=== PATIENT | male | born 1985 | race Caucasian/White ===

== ENCOUNTER → 2016-08-16 | Outpatient (CLI) | payer OTHER ==
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
== END | disposition home or self-care (01) ==
LOC: KCIC MRI 09:07
PROVIDERS: ATTEND Physician Assistant Medical
DX: M54.5 Low back pain (principal)
CPT/HCPCS: 72148

== ENCOUNTER → 2019-04-11 | Outpatient (CLI) | payer OTHER ==
--- NOTE | 2019-04-11 16:56 | KCIC ---
EXAM: LEFT FOOT 3 VIEWS. HISTORY: Left foot pain. COMPARISON: None. FINDINGS: Three views of the left foot are obtained. No fractures are identified. Alignment is normal. Joint spaces are maintained. IMPRESSION: 1. No fracture. Electronically signed by: Haley Woods MD (04/11/2019 4:53 PM) [facility]
== END | disposition home or self-care (01) ==
LOC: KCIC 14:46
PROVIDERS: ATTEND Family Medicine
DX: M79.672 Pain in left foot (principal)
CPT/HCPCS: 73630

== ENCOUNTER 2020-07-11 05:39 | Emergency (ER) | payer OTHER ==
[~2020-07-11] VITALS: Ht 175.3 cm; Wt 92.7 kg
[2020-07-11] MEDS ORDERED: diphenhydrAMINE 50 MG/ML VIAL IVP ONE (06:30)
[2020-07-11] MEDS ORDERED: ONDANSETRON PF 4 MG/2 ML VIAL. IVP ONE (06:30)
[2020-07-11] MEDS ORDERED: IV NORMAL SALINE 1000ML BAG 1,000 ML IV ONE (06:30)
[2020-07-11] MEDS ORDERED: methylPREDNISolone SOD SUCC PF 125 MG/2 ML VIAL. IV ONE (06:30)
--- NOTE | 2020-07-11 06:38 | PHYS DOC ---
Past Medical History Past Medical History: No Pertinent History Past Surgical History: Tonsillectomy, Other Additional Past Surgical Histo: DEVIATED SEPTUM AND SINUS REPAIR Smoking Status: Never Smoker Alcohol Use: Occasionally General Adult EDM: Chief Complaint: DEHYDRATION HPI: HPI: Patient is a 35 year old male who presented to ER due to dehydration. Patient said he had tonsillectomy and adenoidectomy done 3 days ago. Patient said he has not been able to eat or drink due to pain. He said he lost a lot of weight, felt dehydrated. Patient denies any fever, no headache, no chest pain, no abdominal pain, no nausea vomiting, no trouble breathing. Review of Systems: Review of Systems: Constitutional: Denies fever or chills. Positive for generalized weakness. Eyes: Denies change in visual acuity. [] HENT: Positive for sore throat, Respiratory: Denies cough or shortness of breath. [] Cardiovascular: Denies chest pain or edema. [] GI: Denies abdominal pain, nausea, vomiting, bloody stools or diarrhea. [] : Denies dysuria. [] Musculoskeletal: Denies back pain or joint pain. [] Integument: Denies rash. [] Neurologic: Denies headache, focal weakness or sensory changes. [] Endocrine: Denies polyuria or polydipsia. [] Lymphatic: Denies swollen glands. [] Psychiatric: Denies depression or anxiety. [] Heart Score: Risk Factors: Risk Factors: DM, Current or recent (<one month) smoker, HTN, HLP, family history of CAD, obesity. Risk Scores: Score 0 - 3: 2.5% MACE over next 6 weeks - Discharge Home Score 4 - 6: 20.3% MACE over next 6 weeks - Admit for Clinical Observation Score 7 - 10: 72.7% MACE over next 6 weeks - Early Invasive Strategies Current Medications: Current Medications Medications (Trade) Dose Ordered Sig/Georgina Start Time Stop Time Status Last Admin Dose Admin Diphenhydramine HCl (Benadryl) 25 mg 1X ONCE 07/11/20 06:30 2 06:31 DC Methylprednisolone Sodium Succinate (SOLU-Medrol 125MG VIAL) 125 mg 1X ONCE 07/11/20 06:30 07/11/20 06:31 DC Ondansetron HCl (Zofran) 4 mg 1X ONCE 07/11/20 06:30 26/21 06:31 DC 07/11/20 06:26 4 MG Sodium Chloride 1,000 ml @ 1,000 mls/hr 1X ONCE 07/11/20 06:30 07/11/20 07:29 07/11/20 06:25 1,000 MLS/HR Allergies: Allergies: Allergies Coded Allergies Type Severity Reaction Last Updated Verified soap Allergy Unknown 07/11/20 Yes Uncoded Allergies Type Severity Reaction Last Updated Verified TAPE Allergy Unknown 07/11/20 Physical Exam: PE: Constitutional: Well developed, well nourished, no acute distress, non-toxic appearance. [] HENT: Normocephalic, atraumatic, bilateral external ears normal, uvula is edematous and erythema, whitish slough in tonsillar fossae bilaterally, no active bleeding, no nose bleeding. Eyes: PERRLA, EOMI, conjunctiva normal, no discharge. [] Neck: Normal range of motion, no tenderness, supple, no stridor. [] Cardiovascular:Heart rate regular rhythm, no murmur [] Lungs & Thorax: Bilateral breath sounds clear to auscultation [] Abdomen: Bowel sounds normal, soft, no tenderness, no masses, no pulsatile masses. [] Skin: Warm, dry, no erythema, no rash. [] Back: No tenderness, no CVA tenderness. [] Extremities: No tenderness, no cyanosis, no clubbing, ROM intact, no edema. [] Neurologic: Alert and oriented X 3, normal motor function, normal sensory function, no focal deficits noted. [] Psychologic: Affect normal, judgement normal, mood normal. [] Current Patient Data: Labs: Laboratory Tests Test 07/11/20 05:55 White Blood Count 12.5 x10^3/uL Red Blood Count 5.02 x10^6/uL Hemoglobin 15.7 g/dL Hematocrit 45.7 % Mean Corpuscular Volume 91 fL Mean Corpuscular Hemoglobin 31 pg Mean Corpuscular Hemoglobin Concent 34 g/dL Red Cell Distribution Width 12.8 % Platelet Count 241 x10^3/uL Neutrophils (%) (Auto) 75 % Lymphocytes (%) (Auto) 14 % Monocytes (%) (Auto) 11 % Eosinophils (%) (Auto) 0 % Basophils (%) (Auto) 0 % Neutrophils # (Auto) 9.4 x10^3/uL Lymphocytes # (Auto) 1.7 x10^3/uL Monocytes # (Auto) 1.3 x10^3/uL Eosinophils # (Auto) 0.0 x10^3/uL Basophils # (Auto) 0.0 x10^3/uL Sodium Level 140 mmol/L Potassium Level 3.8 mmol/L Chloride Level 103 mmol/L Carbon Dioxide Level 25 mmol/L Anion Gap 12 Blood Urea Nitrogen 16 mg/dL Creatinine 1.2 mg/dL Estimated GFR (Cockcroft-Gault) 68.5 BUN/Creatinine Ratio 13 Glucose Level 114 mg/dL Calcium Level 9.3 mg/dL Magnesium Level 2.2 mg/dL Total Bilirubin 1.0 mg/dL Aspartate Amino Transf (AST/SGOT) 25 U/L Alanine Aminotransferase (ALT/SGPT) 45 U/L Alkaline Phosphatase 59 U/L Total Protein 7.8 g/dL Albumin 3.7 g/dL Albumin/Globulin Ratio 0.9 Lipase 86 U/L Current Medications Medications (Trade) Dose Ordered Sig/Georgina Route PRN Reason Start Time Stop Time Status Last Admin Dose Admin Sodium Chloride 1,000 ml @ 1,000 mls/hr 1X ONCE IV 07/11/20 06:30 07/11/20 07:29 DC 07/11/20 06:25 Ondansetron HCl (Zofran) 4 mg 1X ONCE IVP 07/11/20 06:30 07/11/20 06:31 DC 07/11/20 06:26 Methylprednisolone Sodium Succinate (SOLU-Medrol 125MG VIAL) 125 mg 1X ONCE IV 07/11/20 06:30 07/11/20 06:31 DC 07/11/20 06:41 Diphenhydramine HCl (Benadryl) 25 mg 1X ONCE IVP 07/11/20 06:30 07/11/20 06:31 DC 07/11/20 06:40 Vital Signs: Vital Signs Date Time Temp Pulse Resp B/P (MAP) Pulse Ox O2 Delivery O2 Flow Rate FiO2 07/11/20 05:40 97.9 108 12 158/91 (113) 96 Room Air 97.9 EKG: EKG: [] Radiology/Procedures: Radiology/Procedures: [] Course & Med Decision Making: Course & Med Decision Making Pertinent Labs and Imaging studies reviewed. (See chart for details) Patient is a 35-year-old male who was evaluated in the ER due to generalized weakness after tonsillectomy. Patient vital signs was normal, his lab work was within normal limits. Patient was given IV fluid, IV nausea medication in the ER. Due to the swelling in her uvula patient was given steroid and Benadryl.. Patient will be discharged home, he will need to follow-up with his ENT doctor on Monday. Charis Disclaimer: Charis Disclaimer: This electronic medical record was generated, in whole or in part, using a voice recognition dictation system. Departure Departure Impression: Primary Impression: Dehydration Additional Impression: Status post tonsillectomy and adenoidectomy Disposition: HOME SELF CARE/HOMELESS Condition: IMPROVED Referrals: CHRIS FROST MD (PCP) Follow up with your ENT doctor on Monday. Patient Instructions: Dehydration, Adult, Diet - Following Tonsillectomy, Adult, Tonsillectomy, Adult, Care After Additional Instructions: Thank you for visiting our Emergency Department. We appreciate you trusting us with your care. If any additional problems come up don't hesitate to return to visit us. Please follow up with your primary care provider so they can plan additional care if needed and know about the problem that you had. If symptoms worsen come back to the Emergency Department. Any concerning symptoms that start such as chest pain, shortness of air, weakness or numbness on one side of the body, running high fevers or any other concerning symptoms return to the ER. KYLE CARPENTER DO Jul 11, 2020 06:38
[2020-07-11 06:46] LABS: BASO % 0 % (0-3); EOS % 0 % (0-3); HEMATOCRIT 45.7 % (39.0-53.0); HEMOGLOBIN 15.7 g/dL (13.0-17.5); LYMPH # 1.7 x10^3/uL (1.0-4.8); LYMPH % 14 % (24-48); MEAN CORPUSCULAR HEMOGLOBIN 31 pg (25-35); MEAN CORPUSCULAR HGB CONC 34 g/dL (31-37); MEAN CORPUSCULAR VOLUME 91 fL (79-100); MONO # 1.3 x10^3/uL (0.0-1.1); MONO % 11 % (0-9); NEUT # 9.4 x10^3/uL (1.8-7.7); NEUT % 75 % (31-73); PLATELET COUNT 241 x10^3/uL (140-400); RED BLOOD COUNT 5.02 x10^6/uL (4.30-5.70); RED CELL DISTRIBUTION WIDTH 12.8 % (11.5-14.5); WHITE BLOOD COUNT 12.5 x10^3/uL (4.0-11.0)
[2020-07-11 06:52] LABS: CALCIUM 9.3 mg/dL (8.5-10.1); CREATININE 1.2 mg/dL (0.7-1.3); GFR 68.5; POTASSIUM 3.8 mmol/L (3.5-5.1)
[2020-07-11 06:58] LABS: ALBUMIN 3.7 g/dL (3.4-5.0); ALBUMIN/GLOBULIN RATIO 0.9 (1.0-1.7); MAGNESIUM 2.2 mg/dL (1.8-2.4); TOTAL PROTEIN 7.8 g/dL (6.4-8.2)
[2020-07-11 07:45] VITALS: BP 123/74
== END 2020-07-11 08:08 | disposition home or self-care (01) ==
LOC: ER 05:39
DX: E86.0 Dehydration (principal); R53.1 Weakness; Z90.89 Acquired absence of other organs; Z88.8 Allergy status to other drugs, medicaments and biological substances
CPT/HCPCS: 36415; 80053; 83690; 83735; 85025; 96361; 96374; 96375; 99284; J1200; J2405; J2930; J7030

== ENCOUNTER → 2020-12-11 | Outpatient (CLI) | payer OTHER ==
[~2020-12-11] MED LIST: ALBU2.5V8 IH; ALLO300T PO; DEXT25CA4 PO; GADOTERATE 7.5 MMOL/15ML VIAL. INT ART ONE; IOHEXOL 300 MG/ML 50 ML VIAL. INT ART ONE; LIDOCAINE 1% Multi-Dose 20 ML VIAL. ID ONE; OXYC1TAB19 PO
--- NOTE | 2020-12-11 17:26 | KCIC ---
Fluoroscopically guided injection of the left shoulder to facilitate a MR arthrogram 12/11/2020 Clinical history: Left shoulder pain. Technique: After the risks and benefits of the procedure were explained to the patient, written infor med consent was obtained. The anterior skin surface of the left shoulder was prepped and draped in st erile fashion. 1% lidocaine was used as local anesthetic. Under fluoroscopic guidance, a 22-gauge spi nal needle was advanced into the anterior aspect of the left glenohumeral joint. Intra-articular posi tion of the needle was confirmed by injecting 3 cc of Omnipaque 300. Following 15 cc of a solution co ntaining 5 cc of 0.1% lidocaine, 15 cc of normal saline and 0.1 cc of CLARISCAN were injected into th e left glenohumeral joint. Following this the needle was removed and hemostasis achieved at the punct ure site. A sterile bandage was placed on the skin puncture site. The patient tolerated the procedure well and there were no immediate complications. The patient was taken to MRI for further imaging maynor luation. The total fluoroscopic time for this study was 29 seconds. 1 digital fluoroscopic captured A P radiograph of the left shoulder was obtained. Impression: Technically successful injection of the left shoulder joint under fluoroscopy to facilita te a MR arthrogram as outlined above. Electronically signed by: Adonis Hein MD (12/11/2020 5:23 PM) [id number]
--- NOTE | 2020-12-12 07:37 | KCIC ---
Exam Date: 12/11/2020 2:20 PM MRI LEFT UPPER EXTREMITY JOINT WITH IV CONTRAST Indication: Reason: LEFT SHOULDER PAIN / Spl. Instructions: / History: Left shoulder pain, decreased ROM since September 2020. MR ARTHROGRAM LEFT SHOULDER WITH CONTRAST TECHNIQUE: Multiplanar MR imaging of the shoulder was performed following the intra-articular injecti on of both iodinated contrast and dilute gadolinium contrast. The fluorscopic-guided shoulder injec tion procedure is reported separately. FINDINGS: There is a posterior labral tear extending inferiorly. There is a 4 mm paralabral cyst adjacent to t he posterior inferior labrum. Long head of the biceps tendon is intact. No full-thickness rotator cuff tendon tear is identified. The supraspinatus, infraspinatus, teres mi nor and subscapularis tendons are intact. Rotator cuff musculature demonstrates normal signal and bu lk. Mild degenerative changes are seen at the AC joint. There is an intact type I acromion. No signific ant fluid or contrast extension is seen in the subacromial/subdeltoid bursa to suggest bursitis or fu ll-thickness rotator cuff tendon tear. No large full-thickness chondral defect is seen at the glenohumeral joint. Bone marrow demonstrates benign signal on all sequences without acute fracture. IMPRESSION: There is a posterior labral tear extending inferiorly with an adjacent small paralabral cyst. Intact rotator cuff tendons. Electronically signed by: Radames Tucker MD (12/12/2020 7:35 AM) [facility]
== END | disposition home or self-care (01) ==
LOC: KCIC 12:49
PROVIDERS: ATTEND Physician Assistant
DX: M25.512 Pain in left shoulder (principal); S43.432A Superior glenoid labrum lesion of left shoulder, initial encounter; S43.002A Unspecified subluxation of left shoulder joint, initial encounter; M54.10 Radiculopathy, site unspecified; Z72.89 Other problems related to lifestyle; Z88.8 Allergy status to other drugs, medicaments and biological substances; X58.XXXA Exposure to other specified factors, initial encounter; Y93.89 Activity, other specified; Y92.89 Other specified places as the place of occurrence of the external cause; Y99.8 Other external cause status
CPT/HCPCS: 23350; 73222; 77002; A9575; J3490; Q9967

== ENCOUNTER 2021-01-15 10:05 | Day surgery (SDC) | payer OTHER ==
[~2021-01-15] VITALS: Ht 175.3 cm; Wt 102.5 kg
[~2021-01-15 10:05] MED LIST changes: -ALBU2.5V8 IH; -ALLO300T PO; -DEXT25CA4 PO; +EPINEPHrine VIAL 30 MG/30 ML VIAL ONE; -GADOTERATE 7.5 MMOL/15ML VIAL. INT ART ONE; -IOHEXOL 300 MG/ML 50 ML VIAL. INT ART ONE; +IV RINGERS,LACTATED 1000ML 1,000 ML IV SCH; -LIDOCAINE 1% Multi-Dose 20 ML VIAL. ID ONE; +MORPHINE SULFATE 2 MG/ML INJ. IVP PRN; -OXYC1TAB19 PO; +PROCHLORPERAZINE 10 MG/2 ML VIAL. IVP PRN; +fentaNYL PF VIAL 100 MCG/2 ML VIAL IVP PRN
[2021-01-15] MEDS ORDERED: MIDAZOLAM HCL/PF 2 MG/2 ML VIAL. ONE (10:18)
[2021-01-15] MEDS ORDERED: BUPIVACAINE MPF 0.5% 30 ML VIAL. ONE (10:18)
[2021-01-15 10:23] VITALS: BP 133/81
[2021-01-15] MEDS ORDERED: ALLO300T PO (10:54)
[2021-01-15] MEDS ORDERED: DEXT25CA4 PO (10:54)
[2021-01-15] MEDS ORDERED: ALBU2.5V8 IH (10:54)
[2021-01-15] MEDS ORDERED: fentaNYL PF VIAL 100 MCG/2 ML VIAL ONE ×2 (11:24→13:22)
[2021-01-15] MEDS ORDERED: ONDANSETRON PF 4 MG/2 ML VIAL. ONE (11:45)
[2021-01-15] MEDS ORDERED: DEXAMETHASONE SOD PHOS 4 MG/ML VIAL ONE (11:45)
[2021-01-15] MEDS ORDERED: PROPOFOL 10 MG/ML (20ML) VIAL. IV ONE (12:17)
[2021-01-15] MEDS ORDERED: SEVOFLURANE 61 TO 120 MINUTES. IH ONE (12:17)
[2021-01-15] MEDS ORDERED: LIDOCAINE 2% PF 5 ML VIAL. ONE (12:17)
[2021-01-15] MEDS ORDERED: BUPIVACAINE-EPI 0.25%-1:200000 MPF 30 ML VIAL. ONE (12:19)
[2021-01-15] MEDS ORDERED: OXYC1TAB19 PO (13:17)
--- NOTE | 2021-01-15 13:19 | DISCH ---
DISCHARGE INSTRUCTIONS Condition on Discharge Condition on Discharge: Stable Activity After Discharge Activity Instructions for Disc: Other, see below (Immobilizer on when asleep, may remove for fine motor use with arm at elbow at side) Lifting Instructions after Dis: No heavy lifting, No pulling or pushing, Add. restrict see below (No physical therapy expected for the first month) Weight Bearing Status after Di: Non weight bearing Diet after Discharge Diet after Discharge: Regular Wound Incision Care Wound/Incision Care: Change dressing (Remove dressing in 2 days may then shower) Contacting the after DC Call your doctor for: Concerns you may have Follow-Up Follow up with: Dr. Coker 10 days SILVA COKER MD Jan 15, 2021 13:19
[2021-01-15] MEDS ORDERED: PROCHLORPERAZINE 10 MG/2 ML VIAL. ONE (13:22)
[2021-01-15] MEDS ORDERED: HYDROmorphone 2 MG/ML VIAL ONE (13:22)
[2021-01-15] MEDS ORDERED: SEVOFLURANE > 120 MINUTES. IH ONE (13:38)
[2021-01-15] MEDS: HYDROmorphone 2 MG/ML VIAL IVP PRN ×4 (13:53→14:42)
[2021-01-15] MEDS ORDERED: hydrALAZINE 20 MG/ML VIAL. ONE (14:11)
[2021-01-15] MEDS ORDERED: HYDROcodone/APAP 7.5/325MG 1 TAB TABLET ONE (14:11)
[2021-01-15] MEDS ORDERED: LABETALOL 20 MG/4 ML DISP.SYRIN. IVP ONE (14:13)
[2021-01-15] MEDS ORDERED: LABETALOL 20 MG/4 ML DISP.SYRIN. IVP PRN (14:15)
[2021-01-15] MEDS ORDERED: HYDROcodone/APAP 7.5/325MG 1 TAB TABLET PO ONE (14:15)
[2021-01-15 15:40] VITALS: BP 155/89
--- NOTE | 2021-01-17 18:51 | PDOC4 ---
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 Operative procedure: Left shoulder arthroscopy posterior labral repair and anterior capsular plication Surgeon: Sheela Assist: Frank gutierrez Anesthesia: General plus scalene block Estimated blood loss: 10 cc Complications: None Operative indications: Please see my preoperative clinic note and note that we had talked about repairing the labrum addressing any other pathologic conditions and the possibility of infection nerve or blood vessel damage nonhealing continued instability medical or other complications among others all his questions were answered he wishes to proceed with surgical evaluation and treatment Operative text: Patient was identified procedure verified and after adequate amounts of general anesthesia plus a pre-existing scalene block were obtained patient was placed in the decubitus position left side up all bony prominences were well-padded and the left shoulder was examined under anesthesia found to have some mild multidirectional instability. The left shoulder was then prepped and draped in standard sterile fashion placed in the arthroscopic arm hess with a total of 15 pounds of traction and after timeout was performed patient procedure identified and verified a standard posterior portal was established an anterior portal established using spinal needle localization and the shoulder joint was systematically examined. Biceps labral anchor and rotator cuff were noted to be intact including the subscapularis insertion. He did have a tear of the posterior labrum which was from the glenoid. A slightly inferior posterior working portal was established and the glenoid was prepared back to bleeding bone as there was no bony deficit noted suture was passed around the posterior capsule and labral repair carried out with a single juggernaut labral anchor which was secured with sliding locking knots backed up by alternating post half hitches. Anterior capsule was mildly pendulous and was with a [place] blade and glenoid was prepared to bleeding bone with the arthroscopic shaver. Capsular shift was carried out and secured with a single juggernaut labral anchor which restored anterior instability and was confirmed with the shoulder out of traction. Joint was drained of arthroscopic fluid portals closed with nylon suture sterile dressings were applied patient was placed in an immobilizer and returned to recovery room in stable condition having tolerated procedure well. Frank gutierrez was present for the procedure assisted in patient positioning prepping draping instrument positioning closure and dressings SILVA ALSTON MD Jan 17, 2021 18:51
== END 2021-01-15 15:50 | disposition home or self-care (01) ==
LOC: SURG 10:05
PROVIDERS: ATTEND Orthopaedic Surgery
DX: S43.432A Superior glenoid labrum lesion of left shoulder, initial encounter (principal); J45.909 Unspecified asthma, uncomplicated; Z79.899 Other long term (current) drug therapy; Z98.890 Other specified postprocedural states; Z72.89 Other problems related to lifestyle; Z91.013 Allergy to seafood; Z88.8 Allergy status to other drugs, medicaments and biological substances; X58.XXXA Exposure to other specified factors, initial encounter; Y93.89 Activity, other specified; Y92.89 Other specified places as the place of occurrence of the external cause; Y99.8 Other external cause status
CPT/HCPCS: 29807; 64415; A4565; A4930; C1713; J0171; J0690; J0780; J1100; J1170; J2250; J2405; J2704; J3010; J3490; A4223; J0360